=== PATIENT | male | born 1950 | race Asian ===

== ENCOUNTER → 2019-02-05 | Outpatient (CLI) | payer MEDICARE, OTHER ==
[~2019-02-05] MED LIST: ASPI-515 PO; ASPI325T80 PO; CLOP75TA52 PO; DIAZ5TAB PO; GABA100C PO; GABA300C PO; GABA300C10 PO; HYDR25TA6 PO; LISI-167 PO; LISI1TAB3 PO; LISI1TAB7 PO; LOVA40TA2 PO; METF10002 PO; METF500T17 PO; METH4TAB PO; ONDA4TAB10 PO; PROP10TA16 PO; PROP40TA PO; REGADENOSON 0.4 MG/5 ML SYRINGE ONE
== END | disposition home or self-care (01) ==
LOC: CFH 07:08
PROVIDERS: ATTEND Nurse Practitioner Primary Care
DX: I11.9 Hypertensive heart disease without heart failure (principal); I25.10 Atherosclerotic heart disease of native coronary artery without angina pectoris; I48.91 Unspecified atrial fibrillation; E11.9 Type 2 diabetes mellitus without complications; E78.5 Hyperlipidemia, unspecified
CPT/HCPCS: 78452; 93017; 93306; A9502; J2785